=== PATIENT | male | born 1965 | race Two or more races ===

== ENCOUNTER 2024-09-04 20:39 | Emergency (ER) | payer MEDICAID, OTHER ==
[~2024-09-04] VITALS: Ht 180.3 cm; Wt 74.0 kg
--- NOTE | 2024-09-04 21:13 | ED.PDOC ---
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 reports finding patient in the middle of the street, rambling and erratic. Patient reports drinking Tequila today and marijuana but unknown of amount. Unable to redirect patient to conversation, keeps rambling about speeding vehicles and how he attempted to stop them. is here for total clearance before booking patient to [facility]. Patient denies any narcotic use or pain at this time. Unable to obtain any medical information at this time. Patient denies any SI or HI. Chief Complaint: Penitentiary Check Time Seen by MD: 20:53 Reviewed Notes: Nurses Notes, Medications, Allergies Information Source: Law Enforcement Mode of Arrival: Severity: Unable to Care for Self Severity of Pain: None Severity of Mental Status: Moderate Severity of Symptoms: Moderate Timing: Hours Duration: Since onset Presents with: Bizarre Behavior, Alcohol Intoxication Ingestion: Intentional, Multiple Circumstance: Medical Clearance, Causing a Disturbance Current substance abuse: ETOH Stressors: None Associated signs and symptoms: Intoxication Past Medical History PAST MEDICAL HISTORY: Unobtainable Surgical History: Unobtainable Family History Family History: Unobtainable Social History Smoker: Unobtainable Alcohol: Unobtainable Drugs: Unobtainable Lives In: Unobtainable Unable to Obtain due to: Altered Mental Status Physical Exam General Appearance: Mild Distress (Patient is erratic and rambling), Normal HEENT: Normal ENT Inspection, Pharynx Normal, TMs Normal Neck: Full Range of Motion, Non-Tender, Normal, Normal Inspection Respiratory: Chest Non-Tender, Lungs Clear, No Accessory Muscle Use, No Respiratory Distress, Normal Breath Sounds Cardiovascular: No Edema, No JVD, No Murmur, No Gallop, Normal Peripheral Pulses, Regular Rate/Rhythm Breast Exam: Deferred Gastrointestinal: No Organomegaly, Non Tender, No Pulsatile Mass, Normal Bowel Sounds, Soft Genitalia: Deferred Pelvic: Deferred Rectal: Deferred Extremities: No calf tenderness, Normal capillary refill, Normal inspection, Normal range of motion, Non-tender, No pedal edema Musculoskeletal : Apperance: Normal Neurologic: Alert, senior care specialist II-XII nml as Tested, No Motor Deficits, Normal Affect, Normal Mood, No Sensory Deficits Cerebellar Function: Normal Reflexes: Normal Skin: Dry, Normal Color, Warm Lymphatic: No Adenopathy Was a procedure done? Was a procedure done?: No Psych Differential Dx Psych. Differential Dx: Hopeless, Suicidal Intoxication Differential Dx: Dehydration, Drug-Induced Psychosis, Electrolyte Imbalance, Intoxication, Personality Disorder, Schizophrenia, Substance Abuse Disorder X-Ray, Labs, Meds, VS Vital Signs Date Time Temp Pulse Resp B/P (MAP) Pulse Ox O2 Delivery O2 Flow Rate FiO2 09/04/24 20:39 98.7 122 18 141/106 (118) 97 Lab Test 09/04/24 21:29 09/04/24 21:13 Range/Units White Blood Count 11.1 H 4.4-10.8 10^3/uL Red Blood Count 4.60 4.5-5.90 10^6/uL Hemoglobin 13.7 13.5-17.5 g/dL Hematocrit 40.4 L 41.0-53.0 % Mean Corpuscular Volume 87.7 80.0-100.0 fL Mean Corpuscular Hemoglobin 29.8 28.0-32.0 pg Mean Corpuscular Hemoglobin Concent 33.9 32.0-36.0 g/dL Red Cell Distribution Width 14.0 11.8-14.3 % Platelet Count 333 140-450 10^3/uL Mean Platelet Volume 6.9 6.9-10.8 fL Neutrophils (%) (Auto) 66.5 37.0-80.0 % Lymphocytes (%) (Auto) 21.2 10.0-50.0 % Monocytes (%) (Auto) 9.6 0.0-12.0 % Eosinophils (%) (Auto) 1.9 0.0-7.0 % Basophils (%) (Auto) 0.8 0.0-2.0 % Neutrophils # (Auto) 7.3 1.6-8.6 10 ^3/uL Lymphocytes # (Auto) 2.4 0.4-5.4 10 ^3/uL Monocytes # (Auto) 1.1 0-1.3 10 ^3/uL Eosinophils # (Auto) 0.2 0-0.8 10 ^3/uL Basophils # (Auto) 0.1 0-0.2 10 ^3/uL Nucleated Red Blood Cells 0.1 % Sodium Level 137 136-145 mmol/L Potassium Level 3.5 3.5-5.1 mmol/L Chloride Level 103 98-107 mmol/L Carbon Dioxide Level 23 20-31 mmol/L Anion Gap 11 5-15 Blood Urea Nitrogen 15 9-23 mg/dL Creatinine 1.10 0.700-1.30 mg/dL Glomerular Filtration Rate Calc 78 >90 mL/min BUN/Creatinine Ratio 13.6 10.0-20.0 Serum Glucose 108 H 74-106 mg/dL Calcium Level 10.1 8.7-10.4 mg/dL Plasma/Serum Blood Alcohol 149.1 H <10 mg/dL Urine Opiates Screen Neg NEGATIVE Urine Fentanyl Screen Neg NEGATIVE Urine Barbiturates Screen Neg NEGATIVE Urine Phencyclidine Screen Neg NEGATIVE Urine Amphetamines Screen Pos NEGATIVE Urine Benzodiazepines Screen Neg NEGATIVE Urine Cocaine Screen Neg NEGATIVE Urine Cannabinoids Screen Pos NEGATIVE X-Ray, Labs, Meds, VS Comment MDM: Patient with history as above presented with alcohol intoxication. History obtained from [facility]. Patient was nontoxic, stable, afebrile, ambulatory, no acute distress. Exam as above. Labs reviewed. CBC showed a mildly elevated white blood cell count of 11.1, otherwise unremarkable. BMP did not show any electrolyte abnormalities. Urine drug screen was positive for amphetamines and cannabinoids. Blood plasma level was 149.1. Reviewed external records. All findings were discussed with the patient. Differential diagnosis considered. Overall presentation is consistent with alcohol intoxication. Low suspicion for acute infection, acute injuries, SI, HI, psychosis. Patient was reevaluated and vital signs were reviewed. Consideration was given for admission, but the patient was stable for outpatient management. Patient was okay to book. No signs of acute injury or infection. No SI or HI. Disposition: Ok to book. This medical document was created using the [employer] dictation system. Although this document has been carefully reviewed, there may still be some phonetic and typographical errors, which are due to imperfections of the software program, and do not reflect any compromise in the patient's medical care. Time of 1ST Reevaluation: 21:18 Reevaluation 1ST: Unchanged Time of 2ND Reevaluation: 22:37 Reevaluation 2ND: Unchanged Patient Education/Counseling: Other (Patient intoxicated) Family Education/Counseling: No Family Present Departure 1 Departure Time of Disposition: 22:37 Impression: Primary Impression: Alcohol intoxication Qualified Codes: F10.920 - Alcohol use, unspecified with intoxication, uncomplicated Disposition: 01 HOME / SELF CARE / HOMELESS Condition: Fair Critical Care Note Critical Care Time?: No Stability Stability form required: No Heart Score Heart Score: Heart Score Response (Comments) Value History N/A 0 EKG N/A 0 Age N/A 0 Risk Factors N/A 0 Troponin N/A 0 Total 0 I personally scribed for ER ([email or web address]) on 09/04/24 at 21:18. Electronically s ubmitted by Maryann Paiz ([facility]). JATIN ISAAC PAC Sep 04, 2024 21:13 ER Sep 04, 2024 21:18
[2024-09-04 21:40] LABS: Basophils # (auto) 0.1 10 ^3/uL (0-0.2); Basophils % (auto) 0.8 % (0.0-2.0); Eosinophils # (auto) 0.2 10 ^3/uL (0-0.8); Eosinophils % (auto) 1.9 % (0.0-7.0); Hematocrit 40.4 % (41.0-53.0); Hemoglobin 13.7 g/dL (13.5-17.5); Lymphocytes # (auto) 2.4 10 ^3/uL (0.4-5.4); Lymphocytes % (auto) 21.2 % (10.0-50.0); Mean Corpuscular Hemoglobin 29.8 pg (28.0-32.0); Mean Corpuscular Hgb Conc. 33.9 g/dL (32.0-36.0); Mean Corpuscular Volume 87.7 fL (80.0-100.0); Monocytes # (auto) 1.1 10 ^3/uL (0-1.3); Monocytes % (auto) 9.6 % (0.0-12.0); Neutrophils # (auto) 7.3 10 ^3/uL (1.6-8.6); Neutrophils % (auto) 66.5 % (37.0-80.0); Nucleated Red Blood Cells % 0.1 %; Platelet Count (auto) 333 10^3/uL (140-450); White Blood Cell 11.1 10^3/uL (4.4-10.8)
[2024-09-04 21:45] LABS: Cannabinoid Screen, Urine Pos (NEGATIVE)
[2024-09-04 21:47] LABS: Amphetamine Screen, Urine Pos (NEGATIVE); Barbiturate Scree,Urine Neg (NEGATIVE); Benzodiazephine Screen, Urine Neg (NEGATIVE); Cocaine Screen, Urine Neg (NEGATIVE); Opiate Scree,Urine Neg (NEGATIVE); Phencyclidine Screen, Urine Neg (NEGATIVE)
[2024-09-04 22:02] LABS: Blood Alcohol 149.1 mg/dL (<10)
[2024-09-04 22:03] LABS: Anion Gap 11 (5-15)
[2024-09-04 22:05] LABS: Calcium 10.1 mg/dL (8.7-10.4); Carbon Dioxide 23 mmol/L (20-31); Chloride 103 mmol/L (98-107); Glucose 108 mg/dL (74-106); Potassium 3.5 mmol/L (3.5-5.1); Sodium 137 mmol/L (136-145)
[2024-09-04 22:08] LABS: BUN/Creatinine Ratio 13.6 (10.0-20.0); Blood Urea Nitrogen 15 mg/dL (9-23)
[2024-09-04 22:42] VITALS: BP 141/88; PULSE 97; RESP 18; TEMP 98.7; O2SAT 98
== END 2024-09-04 22:48 | disposition home or self-care (01) ==
LOC: ER 20:39 → EDBD 20:39 → ER 22:48
DX: F10.129 Alcohol abuse with intoxication, unspecified (principal); Z79.899 Other long term (current) drug therapy
CPT/HCPCS: 36415; 80048; 80307; 80320; 85025